=== PATIENT | male | born 1945 | race Caucasian/White ===

== ENCOUNTER 2017-09-18 07:45 | Outpatient (CLI) | payer SELFPAY ==
--- NOTE | 2017-09-18 09:38 | Ultrasound Report ---
AORTA SCREENIN09/18/2017 CLINICAL INDICATION: Screening. TECHNIQUE: Real-time scanning was performed with commissary representative static images obtained. FINDINGS: The abdominal aorta is normal in caliber, measuring 2.1 cm proximally, 1.8 cm in the midportion, and 1.6 cm distally. The iliacs are normal in caliber. No free fluid is present. IMPRESSION: NO EVIDENCE OF ABDOMINAL AORTIC ANEURYSM. TD: 09/18/2017 09:37
== END 2017-09-18 07:46 | disposition home or self-care (01) ==
LOC: DI 07:45
PROVIDERS: ATTEND Registered Nurse Emergency
DX: Z13.6 Encounter for screening for cardiovascular disorders (principal)
CPT/HCPCS: 76706

== ENCOUNTER 2018-08-19 14:38 | Outpatient (CLI) | payer SELFPAY ==
--- NOTE | 2018-08-21 06:18 | Ultrasound Report ---
Reason: SCROTAL SAC ENLARGEMENT Procedure Date: 08/19/2018 Accession Number: [id number] / [id number] Procedure: US - Testicle CPT Code: FULL RESULT: EXAM: SCROTAL ULTRASOUND AND RIGHT INGUINAL ULTRASOUND EXAM DATE: 08/19/2018 03:19 PM. CLINICAL HISTORY: Scrotal sac enlargement. COMPARISON: None. TECHNIQUE: Real-time scanning was performed with static images obtained. Color-flow images were utilized. FINDINGS: Right: Testis: 3.8 x 2.4 x 2.6 cm. Normal size and echotexture. No mass, calcification, or abnormal blood flow. Epididymis: 2.8 x 0.4 x 0.9 cm. Normal size and echotexture. No solid mass or abnormal blood flow. Hydrocele: The testicle was surrounded by a densely debris-containing hydrocele which demonstrated spontaneous motion, making a mass substantially less likely. The broad color Doppler signal throughout this mass or densely debris-filled hydrocele is felt to be due to motion with no color signal consistent with vasculature identified correct. Varicocele: None. Left: Testis: 2.0 x 1.6 x 2.3 cm. Normal size and echotexture. No mass, calcification, or abnormal blood flow. Epididymis: 0.9 cm. Normal size and echotexture. No mass or abnormal blood flow. Hydrocele: None. Varicocele: None. The right inguinal canal region is interrogated with grayscale and limited color Doppler and Valsalva maneuver is performed. This demonstrates reducible herniation of bowel into the inguinal canal. IMPRESSION: Extratesticular densely debris-filled right hydrocele in the setting of a reducible right inguinal bowel containing hernia. RADIA
== END 2018-08-19 14:39 | disposition home or self-care (01) ==
LOC: DI 14:38
PROVIDERS: ATTEND Hospitalist
DX: N43.3 Hydrocele, unspecified (principal); K40.90 Unilateral inguinal hernia, without obstruction or gangrene, not specified as recurrent
CPT/HCPCS: 76870

== ENCOUNTER 2020-05-18 16:22 | Emergency (ER) | payer SELFPAY ==
[2020-05-18 16:44] VITALS: BP 119/60
--- NOTE | 2020-05-18 16:53 | ED Physician Documentation ---
History of Present Illness - Stated complaint Stated Complaint: EXPOSURE TO COVID - Chief complaint Chief Complaint: General - History obtained from History obtained from: Patient - Additonal information Additional information: His went to a physical therapy office on May 13. The plan was canceled, they found out today that somebody in the office had coronavirus. They are very concerned about it. He did not have a direct exposure but is worried because his was in that office. She is asymptomatic. He is asymptomatic. Review of Systems Constitutional: denies: Fever, Chills, Myalgias Nose: denies: Rhinorrhea / runny nose, Congestion Throat: denies: Sore throat GI: denies: Nausea, Vomiting, Diarrhea PD PAST MEDICAL HISTORY - Past Medical History Cardiovascular: None Respiratory: None Endocrine/Autoimmune: None GI: GERD : None HEENT: None Psych: Claustrophobia Musculoskeletal: None Derm: None - Past Surgical History General: Colonoscopy HEENT: Cataracts Derm: Skin cancer surgery - Present Medications Home Medications: Ambulatory Orders Medication Instructions Recorded Confirmed Cyanocobalamin (Vitamin B-12) 4,000 mcg PO DAILY 12/17/15 01/20/16 [Vitamin B12] Magnesium 250 mg PO DAILY 12/17/15 01/20/16 [place]-3 Fatty Acids [Fish Oil] 1 tab PO DAILY 12/17/15 01/20/16 - Allergies Allergies/Adverse Reactions: Allergies Allergy/AdvReac Type Severity Reaction Status Date / Time No Known Drug Allergies Allergy Verified 05/18/20 16:43 PD ED PE NORMAL - Vitals Vital signs reviewed: Yes - General General: Alert and oriented X 3, No acute distress - Derm Derm: No rash - Neuro Neuro: Alert and oriented X 3, Normal speech - Psych Psych: Normal mood, Normal affect Results - Vitals Vitals: Vital Signs - 24 hr 05/18/20 16:41 Temperature 36.4 C L Heart Rate 88 Respiratory 16 Rate Blood Pressure 119/60 O2 Saturation 95 Oxygen O2 Source Room air Departure - Departure Disposition: 01 Home, Self Care Clinical Impression: Exposure to COVID-19 virus Condition: Good Record reviewed to determine appropriate education?: Yes Comments: You have a Covid test pending. You need to self quarantine until the result is done and negative. Do not leave your house. Do not get near anybody. The results should be done in 48 to 72 hours. We will call with a positive result, the fastest way to get a negative result for confirmation though is to go to the hospital website at [email or web address], click on the my [facility] tab and sign up for the patient portal. If any friends or family get sick and would like to have a Covid test done, but do not have signs or symptoms that would necessitate being hospitalized, we encourage testing through our coronavirus swabbing station, call [phone] to schedule an appointment.
== END 2020-05-18 17:02 | disposition home or self-care (01) ==
LOC: ED 16:22
DX: Z20.828 Contact with and (suspected) exposure to other viral communicable diseases (principal)
CPT/HCPCS: 99283

== ENCOUNTER 2022-06-03 10:52 | Outpatient (CLI) | payer SELFPAY | END 2022-06-03 10:53 | disposition critical access hospital (66) | LOC: EMS 10:52 | DX: R41.82 Altered mental status, unspecified (principal); R53.1 Weakness; R26.81 Unsteadiness on feet | CPT/HCPCS: A0425; A0429 ==

== ENCOUNTER 2022-06-04 19:05 | Outpatient (CLI) | payer SELFPAY | END 2022-06-04 19:06 | disposition short-term general hospital (02) | LOC: EMS 19:05 | PROVIDERS: ATTEND Emergency Medicine | DX: G93.89 Other specified disorders of brain (principal); R41.0 Disorientation, unspecified; R53.1 Weakness | CPT/HCPCS: A0425; A0428 ==